=== PATIENT | female | born 1995 | race Caucasian/White ===

== ENCOUNTER 2016-10-24 10:06 | Emergency (ER) | payer OTHER, MEDICAID ==
[~2016-10-24] VITALS: Ht 157.5 cm; Wt 82.0 kg
[~2016-10-24 10:06] MED LIST: IBUP-232 PO; MACR100C2 PO; NORE0.3514 PO; ZOFR4TAB3 SL
[2016-10-24 10:08] VITALS: BP 134/76; PULSE 96; RESP 18; TEMP 98.4; O2SAT 99
[2016-10-24 10:22] VITALS: BP 132/71; PULSE 86; RESP 16; O2SAT 97
--- NOTE | 2016-10-24 10:39 | PD ---
HPI Chief Complaint: Iuss Acoustic Analyst Problem/Complaint Time Seen by Provider: 10:28 Travel History International Travel<30 days: No Contact w/Intl Traveler<30days: No Traveled to known affect area: No History of Present Illness HPI 21-year-old female here for evaluation of vaginal bleeding. The patient reports passing large blood clots to her vagina for the last 2 days. She states that ever since she had a miscarriage about one year ago she has had intermittent vaginal bleeding. She does not believe she has had a normal period since his miscarriage. States last time she had bleeding was about 2-3 months ago. Bleeding is associated with sharp/cramping lower abdominal/pelvic pain. Currently the patient is pain-free. No history of abdominal surgeries. No urinary symptoms. She is sexually active with one partner and believes that she is in a monogamous relationship for the last 2 years. PFSH Past Medical History Hx Anticoagulant Therapy: No Anxiety: Yes Cardiovascular Problems: No Chemotherapy: No Cerebrovascular Accident: No Diabetes: No Diminished Hearing: No Gastrointestinal Disorders: Yes Psychiatric: Yes Respiratory: No Immunizations Current: Yes Ulcer: Yes (per patient report) Influenza Vaccination: No ?: Not LMP: AUGUST 2016 : 2 Para: 1 Miscarriage: 1 Past Surgical History Section: Yes Gynecologic Surgery: Yes () Social History Alcohol Use: Yes (occas) Tobacco Use: No Substance Use: Yes (occas marijuana) Allergies-Medications (Allergen,Severity, Reaction): Coded Allergies: No Known Allergies (Verified , 10/24/16) Reported Meds & Prescriptions Reported Meds & Active Scripts Active No Active Prescriptions or Reported Medications Review of Systems Except as stated in HPI: all other systems reviewed are Neg Physical Exam Narrative GENERAL: Well-developed, well-nourished, comfortable, no acute distress. SKIN: Focused skin assessment warm/dry. HEAD: Atraumatic. Normocephalic. EYES: Pupils equal and round. No scleral icterus. No injection or drainage. ENT: Mucous membranes pink and moist. CARDIOVASCULAR: Regular rate and rhythm. RESPIRATORY: No accessory muscle use. Clear to auscultation. Breath sounds equal bilaterally. GASTROINTESTINAL: Abdomen soft, nondistended. Mild suprapubic tenderness without peritoneal signs. Rest of abdomen is soft and nontender. Normal bowel sounds. ENDOCRINOLOGY SPECIALIST: Exam performed in the presence of a female nurse. Normal external genitalia. Normal cervix. No blood in vaginal vault. Scant brownish/non-foul- smelling vaginal discharge. No CMT. No adnexal masses or tenderness. MUSCULOSKELETAL: No obvious deformities. No clubbing. No cyanosis. No edema. NEUROLOGICAL: Awake and alert. No obvious cranial nerve deficits. Motor grossly within normal limits. Normal speech. PSYCHIATRIC: Appropriate mood and affect; insight and judgment normal. Data Data Last Documented VS Vital Signs Date Time Temp Pulse Resp B/P Pulse Ox O2 Delivery O2 Flow Rate FiO2 10/24/16 10:22 86 16 132/71 97 Room Air 10/24/16 10:08 98.4 Orders Beta Hcg (Quant/Titer) (10/24/16 10:35) Complete Blood Count With Diff (10/24/16 10:35) Comprehensive Metabolic Panel (10/24/16 10:35) Gc And Chlamydia Pcr (10/24/16 10:35) Wet Prep Profile (10/24/16 10:35) Urinalysis - C+S If Indicated (10/24/16 10:35) Ed Urine Pregnancytest Poc (10/24/16 10:35) Labs Laboratory Tests Test 10/24/16 10/24/16 10:45 11:10 White Blood Count 7.6 TH/MM3 Red Blood Count 4.31 MIL/MM3 Hemoglobin 13.0 GM/DL Hematocrit 38.2 % Mean Corpuscular Volume 88.5 FL Mean Corpuscular Hemoglobin 30.2 PG Mean Corpuscular Hemoglobin 34.1 % Concent Red Cell Distribution Width 13.2 % Platelet Count 291 TH/MM3 Mean Platelet Volume 7.6 FL Neutrophils (%) (Auto) 53.7 % Lymphocytes (%) (Auto) 36.0 % Monocytes (%) (Auto) 7.1 % Eosinophils (%) (Auto) 2.7 % Basophils (%) (Auto) 0.5 % Neutrophils # (Auto) 4.1 TH/MM3 Lymphocytes # (Auto) 2.7 TH/MM3 Monocytes # (Auto) 0.5 TH/MM3 Eosinophils # (Auto) 0.2 TH/MM3 Basophils # (Auto) 0.0 TH/MM3 CBC Comment DIFF FINAL Differential Comment Urine Color YELLOW Urine Turbidity CLEAR Urine pH 8.0 Urine Specific [place] 1.016 Urine Protein TRACE mg/dL Urine Glucose (UA) NEG mg/dL Urine Ketones NEG mg/dL Urine Occult Blood TRACE Urine Nitrite NEG Urine Bilirubin NEG Urine Urobilinogen LESS THAN 2.0 MG/DL Urine Leukocyte Esterase NEG Urine RBC 2 /hpf Urine WBC 2 /hpf Urine Squamous Epithelial 3 /hpf Cells Urine Bacteria RARE /hpf Urine Granular Casts 1 /lpf Microscopic Urinalysis Comment CULT NOT INDICATED Sodium Level 138 MEQ/L Potassium Level 3.8 MEQ/L Chloride Level 103 MEQ/L Carbon Dioxide Level 25.9 MEQ/L Anion Gap 9 MEQ/L Blood Urea Nitrogen 11 MG/DL Creatinine 1.03 MG/DL Estimat Glomerular Filtration 66 ML/MIN Rate Random Glucose 86 MG/DL Calcium Level 8.7 MG/DL Total Bilirubin 0.2 MG/DL Aspartate Amino Transf 26 U/L (AST/SGOT) Alanine Aminotransferase 40 U/L (ALT/SGPT) Alkaline Phosphatase 127 U/L Total Protein 7.6 GM/DL Albumin 3.8 GM/DL Human Chorionic Gonadotropin, LESS THAN 1 Quant MIU/ML Clue Cells (Wet Prep) NONE SEEN Vaginal Trichomonas (Wet Prep) NONE SEEN Vaginal Yeast (Wet Prep) NONE SEEN MDM Medical Decision Making Medical Screen Exam Complete: Yes Emergency Medical Condition: Yes Medical Record Reviewed: Yes Differential Diagnosis Abnormal urine bleeding, anemia, uterine fibroids, ectopic , spontaneous , ovarian cyst, ovarian torsion unlikely Narrative Course Initial vital signs show heart rate 96, blood pressure 134/76, pulse ox 99% on room air, oral temp of 98.4F. BC is unremarkable. CMP is remarkable for creatinine 1.03, GFR 66, alkaline phosphatase 127, otherwise unremarkable. Beta hCG is negative. UA shows trace occult blood, rare bacteria, not suggestive of UTI. Wet prep: Is negative for yeast, negative for Trichomonas, negative for clue cells. Patient was made aware of all findings. She is resting comfortably. There is mild suprapubic tenderness on exam. No peritoneal signs. I do not believe that there is an acute surgical issue that warrants further imaging at this time. She is stable for discharge home with outpatient follow-up with a primary care physician and a home health nurse this week. She was informed on when to return to the emergency department. She verbalizes understanding and agreement with plan. Diagnosis Primary Impression: Abnormal uterine bleeding Referrals: Swat Team Member 3 days Primary Care Physician 3 days Additional Instructions: Follow-up with a primary care physician this week. Follow-up with your home health nurse as scheduled. Return to the emergency department for worsening symptoms or any other concerns as discussed. Scripts Naproxen (Naprosyn)500 Mg Yms396 Mg PO BID #10 TAB Ref 0 Prov:Lukas Gamble MD 10/24/16 Disposition: 01 DISCHARGE HOME Condition: Stable Lukas Gamble MD October 24, 2016 10:39
[2016-10-24 11:02] LABS: BACTERIA, URINE RARE /hpf; BLOOD, URINE TRACE (NEG); GLUCOSE,URINE NEG (NEG); GRANULAR CAST, URINE 1 /lpf; KETONE, URINE NEG (NEG); NITRITE,URINE NEG (NEG); SQUAMOUS EPITHELIAL CELL URINE 3 /hpf (0-5); URINE COLOR YELLOW (YELLW/STRAW)
[2016-10-24 11:04] LABS: AUTOMATED NEUTROPHIL # 4.1 TH/MM3 (1.8-7.7); BASOPHIL % 0.5 % (0.0-2.0); COMMENT (UR) CULT NOT INDICATED; CULTURE IF INDICATED CULT NOT INDICATED; EOSINOPHIL # 0.2 TH/MM3 (0-0.4); EOSINOPHIL % 2.7 % (0.0-4.0); HEMATOCRIT 38.2 % (35.0-46.0); HEMO FLAGS DIFF FINAL; LYMPHOCYTE # 2.7 TH/MM3 (1.0-4.8); MEAN CELL VOLUME 88.5 FL (80.0-100.0); MEAN CORPUSCULAR HEMOGLOBIN 30.2 PG (27.0-34.0); MEAN CORPUSCULAR HGB CONC 34.1 % (32.0-36.0); MONO % 7.1 % (0.0-8.0); NEUT % 53.7 % (16.0-70.0); PLATELET COUNT 291 TH/MM3 (150-450); RED BLOOD COUNT 4.31 MIL/MM3 (4.00-5.30); RED CELL DISTRIBUTION WIDTH 13.2 % (11.6-17.2); WHITE BLOOD COUNT 7.6 TH/MM3 (4.0-11.0)
[2016-10-24 11:17] LABS: ALT (GPT) 40 U/L (10-53); ANION GAP 9 MEQ/L (5-15); AST (GOT) 26 U/L (15-37); BICARBONATE 25.9 MEQ/L (21.0-32.0); BLOOD UREA NITROGEN 11 MG/DL (7-18); CHLORIDE 103 MEQ/L (98-107); GLOMERULAR FILTRATION RATE 66 ML/MIN (>89); POTASSIUM 3.8 MEQ/L (3.5-5.1); SODIUM (NA) 138 MEQ/L (136-145)
[2016-10-24 11:23] LABS: ALKALINE PHOSPHATASE 127 U/L (45-117); BETA HCG QUANT LESS THAN 1 MIU/ML (0-5); TOTAL BILIRUBIN ADULT 0.2 MG/DL (0.2-1.0)
[2016-10-24] MEDS ORDERED: NAPR500 PO (11:42)
[2016-10-24 11:44] VITALS: BP 126/89
[2016-10-24 14:29] LABS: CHLAMYDIA PCR NOT DETECTED (NOT DETECT); NEISSERIA PCR NOT DETECTED (NOT DETECT)
== END 2016-10-24 11:58 | disposition home or self-care (01) ==
LOC: NEPD 10:06
DX: N93.9 Abnormal uterine and vaginal bleeding, unspecified (principal); R10.2 Pelvic and perineal pain
CPT/HCPCS: 80053; 81001; 84702; 84703; 85025; 87210; 87491; 87591; 99284

== ENCOUNTER 2017-06-07 21:33 | Emergency (ER) | payer MEDICAID, OTHER ==
[~2017-06-07] VITALS: Ht 215.9 cm; Wt 88.1 kg
[~2017-06-07 21:33] MED LIST changes: -IBUP-232 PO; -MACR100C2 PO; +NAPR500 PO; -NORE0.3514 PO; -ZOFR4TAB3 SL
[2017-06-07 21:36] VITALS: BP 139/81; PULSE 74; RESP 18; TEMP 99.1; O2SAT 98
--- NOTE | 2017-06-07 22:24 | PD ---
HPI Chief Complaint: Chest Pain Time Seen by Provider: 21:59 Travel History International Travel<30 days: No Contact w/Intl Traveler<30days: No Traveled to known affect area: No History of Present Illness HPI 21-year-old white female presents emergency Department with complaints of chest pain. She states that she's had 2 episodes over the past week. Her last episode was earlier today. She states that it was in the center of her chest. No radiation. Worse with taking a deep breath. She does make note that she has some cold symptoms earlier this past week. Patient did report some tingling around her face with the episode of chest pain and difficulty breathing. She also smokes marijuana and just quit control last month. She denies any recent travel. No calf or leg swelling. Patient denies any medical problems. No diabetes or hypertension. No family history of heart disease. PFSH Past Medical History Hx Anticoagulant Therapy: No Anxiety: Yes Cardiovascular Problems: No Chemotherapy: No Cerebrovascular Accident: No Diabetes: No Diminished Hearing: No Gastrointestinal Disorders: Yes Psychiatric: Yes Respiratory: No Immunizations Current: Yes Ulcer: Yes (per patient report) Tetanus Vaccination: > 5 Years Influenza Vaccination: No ?: Not LMP: IRREGULAR : 2 Para: 1 Miscarriage: 1 Past Surgical History Section: Yes Gynecologic Surgery: Yes () Social History Alcohol Use: Yes (occas) Tobacco Use: No Substance Use: Yes (occas marijuana) Allergies-Medications (Allergen,Severity, Reaction): Coded Allergies: No Known Allergies (Verified Adverse Reaction, Unknown, 06/07/17) Reported Meds & Prescriptions Reported Meds & Active Scripts Active Review of Systems Except as stated in HPI: all other systems reviewed are Neg Physical Exam Narrative GENERAL: Well-developed, well-nourished in no apparent distress. Nontoxic appearing. HEAD: Normocephalic, atraumatic. EYES: Pupils equal round and reactive. Extraocular motions intact. No scleral icterus. No injection or drainage. ENT: Nose clear. Throat without erythema, tonsillar hypertrophy or exudate. Uvula midline. Airway patent. NECK: Trachea midline. Supple, nontender, moves head freely. No central bony tenderness or spasm. CARDIOVASCULAR: Regular rate and rhythm without murmurs, gallops, or rubs. RESPIRATORY: Clear to auscultation. Breath sounds equal bilaterally. No wheezes , rales, or rhonchi. GASTROINTESTINAL: Abdomen soft, non-tender, nondistended. No hepato-splenomegaly , or palpable masses. No guarding. EXTREMITIES: No clubbing, cyanosis, or edema. No joint tenderness. No calf tenderness or swelling. No Homans sign. BACK: Nontender without deformity. No flank tenderness. NEUROLOGICAL: Awake, alert and oriented x 3 .Cranial nerves grossly intact. Motor and sensory grossly within normal limits. Normal speech. Data Data Last Documented VS Vital Signs Date Time Temp Pulse Resp B/P (MAP) Pulse Ox O2 Delivery O2 Flow Rate FiO2 06/07/17 21:36 99.1 74 18 139/81 (100) 98 Room Air Orders Orders Electrocardiogram (06/07/17 22:04) D-Dimer (06/07/17 22:04) Chest, Pa & Lat (06/07/17 22:04) Ed Urine Pregnancytest Poc (06/07/17 22:04) Ondansetron Odt (Zofran Odt) (06/07/17 23:15) Ed Discharge Order (06/07/17 23:36) Labs Laboratory Tests Test 06/07/17 22:10 D-Dimer Quantitative (PE/DVT) 0.37 MG/L FEU [facility] Medical Decision Making Medical Screen Exam Complete: Yes Emergency Medical Condition: Yes Medical Record Reviewed: Yes Interpretation(s) Laboratory Tests Test 06/07/17 22:10 D-Dimer Quantitative (PE/DVT) 0.37 MG/L FEU Last 24 hours Impressions Chest X-Ray 06/07/17 8610 Signed Impressions: Service Date/Time: Wednesday, June 07, 2017 22:16 - CONCLUSION: No acute cardiopulmonary disease. Jolanta Thapa MD EKG shows sinus tachycardia with a ventricular rate of 111, incomplete right bundle-branch block. No ST elevation or depression, and no arrhythmias. No significant T-wave inversions. Normal QT. Normal axis. Differential Diagnosis MDM: High Differential diagnoses: Coronary artery disease, STEMI, angina, pneumothorax, pericarditis, anxiety, pleurisy, pulmonary embolus, pneumonia, electrolyte abnormality Narrative Course Patient is resting comfortably examination room. She is not having any pain. EKG shows no acute ST-T wave changes. Patient's d-dimer is negative. Chest x-ray is negative. This is noncardiac chest wall pain Diagnosis Primary Impression: Chest wall pain Patient Instructions: General Instructions Additional Instructions: Rest. 3 Advil every 6 hours. Follow-up with a primary care doctor in 1 week. Return to the ER for any problems. Med/Other Pt SpecificInfo: Prescription(s) given Disposition: 01 DISCHARGE HOME Condition: Stable Kash Morales Jun 07, 2017 22:24
--- NOTE | 2017-06-07 22:28 | RADRPT ---
EXAM DATE/TIME: 06/07/2017 22:16 [facility] COMPARISON: No previous studies available for comparison. INDICATIONS : Chest pain for one day. MEDICAL HISTORY : None. SURGICAL HISTORY : None. ENCOUNTER: Initial ACUITY: 1 day PAIN SCORE: 10/10 LOCATION: Bilateral chest FINDINGS: The lungs are clear without infiltrate, nodule, or mass. There is no appreciable pleural effusion fo r technique. Heart and mediastinum are unremarkable. CONCLUSION: No acute cardiopulmonary disease. Jolanta Thapa MD on June 07, 2017 at 22:25 Board Certified Radiologist. This report was verified electronically.
[2017-06-07] MEDS ORDERED: ONDANSETRON ODT 4 MG TAB PO ONE (23:15)
[2017-06-07 23:52] VITALS: BP 110/56
--- NOTE | 2017-06-08 13:22 | EKG ---
Date Performed: 06/07/2017 Time Performed: 22:04:25 PTAGE: 21 years EKG: SINUS TACHYCARDIA INCOMPLETE RIGHT BUNDLE BRANCH BLOCK ABNORMAL RHYTHM ECG PREVIOUS TRACING : 05/10/2014 02.30 Compared to prior tracing no significant change DOCTOR: Silverio Mcclain Interpretating Date/Time 06/08/2017 13:20:20
== END 2017-06-08 00:13 | disposition home or self-care (01) ==
LOC: NEPD 21:33
DX: R07.89 Other chest pain (principal); F12.90 Cannabis use, unspecified, uncomplicated
CPT/HCPCS: 71020; 84703; 85379; 93005

== ENCOUNTER 2017-09-24 15:05 | Emergency (ER) | payer MEDICAID ==
[~2017-09-24] VITALS: Ht 157.5 cm; Wt 90.0 kg
[2017-09-24 15:08] VITALS: BP 132/86; PULSE 88; RESP 17; TEMP 98.1; O2SAT 99
--- NOTE | 2017-09-24 15:22 | PD ---
HPI Chief Complaint: Oral / Dental Pain or Problem Time Seen by Provider: 15:11 Travel History International Travel<30 days: No Contact w/Intl Traveler<30days: No Traveled to known affect area: No History of Present Illness HPI 22-year-old female presents emergency department with a broken tooth on the right upper second molar, currently awaiting dental appointment on October 09 , with increased sensitivity to hot and cold as well as swelling and pain. Patient states her dentist sent her here to get antibiotics. She denies fever, chills, or difficulty swallowing. Pain is 8 out of 10. It is worse with hot and cold. She has no known drug allergies. PFSH Past Medical History Hx Anticoagulant Therapy: No Anxiety: Yes Cardiovascular Problems: No Chemotherapy: No Cerebrovascular Accident: No Diabetes: No Diminished Hearing: No Gastrointestinal Disorders: Yes Psychiatric: Yes Respiratory: No Immunizations Current: Yes Ulcer: Yes (per patient report) : 2 Para: 1 Miscarriage: 1 Past Surgical History Section: Yes Gynecologic Surgery: Yes () Social History Alcohol Use: Yes (occas) Tobacco Use: No Substance Use: Yes (occas marijuana) Allergies-Medications (Allergen,Severity, Reaction): Coded Allergies: No Known Allergies (Verified Adverse Reaction, Unknown, 09/24/17) Reported Meds & Prescriptions Reported Meds & Active Scripts Active Review of Systems Except as stated in HPI: all other systems reviewed are Neg General / Constitutional: No: Fever, Chills Eyes: No: Visual changes HENT: Positive: Dental Difficulties, No: Headaches, Vertigo, Lightheadedness, Sore Throat, Rhinitis, Rhinorrhea, Congestion, Nosebleed, Neck Stiffness, Neck Pain, Gingival Bleeding, Earache Cardiovascular: No: Chest Pain or Discomfort Respiratory: No: Shortness of Breath Gastrointestinal: No: Abdominal Pain Genitourinary: No: Dysuria Musculoskeletal: No: Pain Skin: No Rash Neurologic: No: Weakness Psychiatric: No: Depression Endocrine: No: Polydipsia Hematologic/Lymphatic: No: Easy Bruising Physical Exam Narrative GENERAL: Patient appears in mild to moderate distress per SKIN: Warm and dry. Normal color. Normal turgor. HEAD: Atraumatic. Normocephalic. EYES: Pupils equal and round. No scleral icterus. No injection or drainage. ENT: No nasal bleeding or discharge. Mucous membranes pink and moist. Pharynx is clear. Airways patent. Patient has a broken second upper molar on the right. No appreciable abscess is noted NECK: Trachea midline. Supple and nontender. No significant lymphadenopathy. CARDIOVASCULAR: Regular rate and rhythm. RESPIRATORY: No accessory muscle use. Clear to auscultation. Breath sounds equal bilaterally. GASTROINTESTINAL: Abdomen soft, non-tender, nondistended. Hepatic and splenic margins not palpable. MUSCULOSKELETAL: Extremities without clubbing, cyanosis, or edema. No obvious deformities. NEUROLOGICAL: Awake and alert. No obvious cranial nerve deficits. Motor grossly within normal limits. Five out of 5 muscle strength in the arms and legs. Normal speech. PSYCHIATRIC: Appropriate mood and affect; insight and judgment normal. Data Data Last Documented VS Vital Signs Date Time Temp Pulse Resp B/P (MAP) Pulse Ox O2 Delivery O2 Flow Rate FiO2 09/24/17 15:08 98.1 88 17 132/86 (101) 99 MDM Medical Decision Making Medical Screen Exam Complete: Yes Emergency Medical Condition: Yes Differential Diagnosis Cracked tooth. Dental pain. Dental abscess. Narrative Course Patient treated with Pen-Vee K 500 mg 4 times daily for 10 days. Patient given ibuprofen 600 mg 4 times daily #40. Patient given Magic mouthwash every 2 hours as needed dental pain 120 mL's with 1 refill. Patient to follow-up with dentist as scheduled. Diagnosis Primary Impression: Dental abscess Referrals: Dentist Patient Instructions: Dental Abscess (ED), General Instructions Additional Instructions: Patient treated with Pen-Vee K 500 mg 4 times daily for 10 days. Patient given ibuprofen 600 mg 4 times daily #40. Patient given Magic mouthwash every 2 hours as needed dental pain 120 mL's with 1 refill. Patient to follow-up with dentist as scheduled. Med/Other Pt SpecificInfo: Prescription(s) given Disposition: 01 DISCHARGE HOME Condition: Stable Tor Mcdonald Sep 24, 2017 15:22
[2017-09-24] MEDS ORDERED: IBUP-232 PO (15:23)
[2017-09-24] MEDS ORDERED: MAGICADU2 SWISH-SPIT (15:23)
[2017-09-24] MEDS ORDERED: PENI500T PO (15:23)
== END 2017-09-24 16:21 | disposition home or self-care (01) ==
LOC: NEPK 15:05
DX: K04.7 Periapical abscess without sinus (principal)
CPT/HCPCS: 99283

== ENCOUNTER 2017-11-15 17:44 | Emergency (ER) | payer MEDICAID ==
[~2017-11-15] VITALS: Ht 160 cm; Wt 87.0 kg
[~2017-11-15 17:44] MED LIST changes: +IBUP-232 PO; +MAGICADU2 SWISH-SPIT; -NAPR500 PO; +PENI500T PO
[2017-11-15 17:48] VITALS: BP 142/85; PULSE 103; RESP 19; TEMP 98.6; O2SAT 98
== END 2017-11-15 18:50 | disposition left against medical advice (07) ==
LOC: NED 17:44
DX: Z53.21 Procedure and treatment not carried out due to patient leaving prior to being seen by health care provider (principal); M79.601 Pain in right arm
CPT/HCPCS: 99281

== ENCOUNTER 2018-03-17 00:53 | Observation (INO) ==
[2018-03-17 01:08] VITALS: TEMP 97.2
[2018-03-17] MEDS ORDERED: Sodium Chlor 0.9% Inj 500 ML IV.SIG ONE (03:35)
[2018-03-17] MEDS ORDERED: Pantoprazole Inj 40 MG Vial IV.PUSH ONE (03:35)
--- NOTE | 2018-03-17 04:00 | ED ---
HPI General Chief Complaint: Chest Pain Stated Complaint: Chest pain/SOB Time Seen by Provider: 03/17/18 03:03 Source: patient Mode of arrival: ambulatory Limitations: no limitations History of Present Illness HPI narrative: The patient is a 22 year old female who presents to the [facility] emergency department with a history of chest pain that she reports is been coming and going for the last few days. She reports that it has been more persistent this evening and more severe. She reports that she has had sharp chest pains in the past that have been attributed to anxiety after workups were done. She reports that she has not had a stress test in the past. She reports that this chest pain is different. She reports that it is in the center of her chest in the upper aspect and is a pressure sensation. She reports that time she also has a burning sensation although she denies any acid reflux otherwise. She denies any prior history of diabetes, hypertension, or hyperlipidemia. She does however have a family history of heart disease specifically in her dad who had an PR at 49 years of age and her grandmother. She denies any prior history of DVT or PE. She denies having any lower extremity edema, calf pain, or erythema. She denies any family history of blood clots. Her primary care physician is Dr. Monte. The patient's last menstrual cycle was 2 weeks ago. She reports that she has had irregular menstrual cycles for the last 2 years with cycles that will last for up to a month at a time. She is in the process of being referred to an nipple maker for her cycles. The patient reports that with the chest pain this evening she has had shortness of breath. She has had nausea without vomiting. She also reports having some sweating associated with this. On review of systems otherwise, the patient denies having any known recent fevers, cough, congestion, neck pain, chest pain, shortness of breath, abdominal pain, vomiting, diarrhea, urinary symptoms, or neurologic symptoms. Related Data Home Medications Medication Instructions Recorded Confirmed No Known Home Medications 02/19/18 03/17/18 Allergies Allergy/AdvReac Type Severity Reaction Status Date / Time No Known Allergies Allergy Verified 12/28/17 02:23 Review of Systems ROS: all other systems reviewed are negative [facility] Medical History Medical History Dysfunctional uterine bleeding (Acute) Anxiety (Acute) delivery delivered (Acute) Social History Social History Substance History: Past History Second Hand Smoke Exposure: No Smoking Status: Never smoker How Often Do You Have a Drink Containing Alcohol: Monthly or less Recent Travel in [facility] within the Last 8 Weeks: No Recent Out of Country Travel within the Last 8 Weeks: No Substance Abuse Detail Marijuana: Route Used Substance Abuse: Inhalation Immunization History Tetanus Immunization: >5 Years Exam Const General: cooperative, no acute distress and well developed Nutritional Appearance: well nourished Orientation: alert, awake and oriented x3 HENMT Head: normocephalic and atraumatic Nose: no nasal discharge and no epistaxis Mouth: moist mucous membranes Throat: posterior oropharynx normal and uvula midline Eyes Sclera: normal sclerae Pupils: PERRL EOM: EOM intact bilaterally Neck Neck: no meningeal signs, trachea midline and no JVD Chest Chest: normal inspection of the chest and no tenderness Resp Effort & Inspection: no use of accessory muscles Auscultation: clear to auscultation bilaterally Cardio Rate: regular rate Rhythm: regular rhythm Heart Sounds: no murmurs GI Inspection: non-distended Palpation: soft, no hepatosplenomegaly, no guarding, not rigid and nontender Auscultation: normal bowel sounds Back/Spine/Pelvis Back: no CVA tenderness Skin General: dry skin (warm) Neuro General: alert, awake, oriented x3 and other (Grossly nonfocal.) Speech: speech normal Motor: no movement abnormalities noted Extrem General: normal to inspection (2+ pulses in all 4 extremities.), no calf tenderness, no clubbing, no cyanosis and no edema Psych Mood: congruent mood Affect: normal affect Judgment: judgment good Course Initial Documented Vital Signs Temperature 97.2 F L 03/17/18 01:05 Pulse Rate 98 H 03/17/18 01:05 Respiratory Rate 18 03/17/18 01:05 Blood Pressure 130/73 03/17/18 01:05 Pulse Oximetry 100 03/17/18 01:05 Last Documented Vital Signs Temperature 97.2 F L 03/17/18 01:05 Pulse Rate 80 03/17/18 08:10 Respiratory Rate 16 03/17/18 08:10 Blood Pressure 100/54 L 03/17/18 08:10 Pulse Oximetry 99 03/17/18 08:10 Medical Decision Making MDM Narrative Medical decision making narrative: During the course of the patient's emergency department visit, the patient's history, examination, and differential diagnosis were reviewed with the patient. The patient was placed on a student ministries director with oximetry and frequent blood pressure monitoring. The patient had IV access obtained and blood work sent for analysis. A diagnostic evaluation was started regarding the patient's chest pain. The patient reports that she did take 4 adult aspirin throughout the day over the last 24 hours. The patient was initially provided normal saline at 500 mL bolus x1, Protonix 40 mg IV x1, nitroglycerin sublingual x1, Zofran 4 mg IV for nausea. The patient's diagnostic evaluation is remarkable for normal CBC, PT PTT within normal limits, d-dimer less than 0.00.50 decreasing likelihood of pulmonary embolism in this patient with no other significant risk factors. Chemistry is remarkable for chloride of 108, GFR of 82, calcium 8.4, total bilirubin 0.1, initial set of cardiac enzymes are within normal limits, lipase within normal limits. The patient had a chest x-ray done that showed no acute abnormality. The patient was agreeable with the plan to proceed with admission to the chest pain center for rule out real cardiac enzyme protocol followed by consideration of stress testing given her family history of cardiac disease. The patient's results were discussed with the patient, including the plan of care. I explained that further testing and/ or monitoring is indicated based on the patient's history, examination, and/ or laboratory findings. Therefore, I recommended admission for additional evaluation. The patient expressed understanding and was agreeable with this plan. The patient was admitted to the hospital in stable condition and sent to a bed under the care of the [facility]. Medical Screen Exam Complete: Yes Emergency Medical Condition: Yes Differential Diagnosis Differential Diagnosis: Acute coronary syndrome, versus pulmonary embolism, versus acid reflux, versus anxiety disorder Medical Records Medical records reviewed: Yes I reviewed the patient's medical records. Lab Data Lab results reviewed: Yes I reviewed the patient's lab results. Result diagrams: 03/17/18 03:55 03/17/18 03:55 POC Results POC Urine Results Negative Lab Results 03/17/18 03/17/18 03/17/18 Range/Units 03:55 03:55 03:55 WBC 9.6 (4.0-11.0) th/mm3 RBC 4.38 (4.00-5.30) mil/mm3 Hgb 12.9 (11.6-15.3) gm/dL Hct 38.0 (35.0-46.0) % MCV 86.7 (80.0-100.0) fL MCH 29.4 (27.0-34.0) pg MCHC 33.9 (32.0-36.0) % RDW 12.9 (11.6-17.2) % Plt Count 355 (150-450) th/mm3 MPV 7.7 (7.0-11.0) fL Neut % (Auto) 56.4 (16.0-70.0) % Lymph % (Auto) 34.1 (9.0-44.0) % Warrick % (Auto) 6.6 (0.0-8.0) % Eos % (Auto) 2.5 (0.0-4.0) % Baso % (Auto) 0.4 (0.0-2.0) % Neut # (Auto) 5.4 (1.8-7.7) th/mm3 Lymph # (Auto) 3.3 (1.0-4.8) th/mm3 Warrick # (Auto) 0.6 (0.0-0.9) th/mm3 Eos # (Auto) 0.2 (0.0-0.4) th/mm3 Baso # (Auto) 0.0 (0.0-0.2) th/mm3 WBC Differential . Differential Comment Auto diff final PT (9.8-11.6) sec INR Ratio APTT (24.3-30.1) sec D-Dimer Quant (PE/DVT) (0.00-0.50) mg/L FEU Sodium 141 (136-145) meq/L Potassium 4.0 (3.5-5.1) meq/L Chloride 108 H (98-107) meq/L Carbon Dioxide 24.7 (21.0-32.0) meq/L Anion Gap 8 (5-15) meq/L BUN 13 (7-18) mg/dL Creatinine 0.85 (0.50-1.00) mg/dL Estimated GFR 82 L (>89) mL/min Random Glucose 83 (74-106) mg/dL Calcium 8.4 L (8.5-10.1) mg/dL Magnesium 2.1 (1.5-2.5) mg/dL Total Bilirubin 0.1 L (0.2-1.0) mg/dL AST 16 (15-37) U/L ALT 19 (10-53) U/L Alkaline Phosphatase 107 (45-117) U/L Total Creatine Kinase 103 (26-192) U/L CK-MB (CK-2) Less than 1.0 (0.5-3.6) ng/mL Troponin I Less than 0.02 L (0.02-0.05) ng/mL B-Natriuretic Peptide 5 (0-100) pg/mL Total Protein 8.0 (6.4-8.2) g/dL Albumin 3.9 (3.4-5.0) g/dL Lipase 92 (73-393) U/L 03/17/18 03/17/18 Range/Units 03:55 06:40 WBC (4.0-11.0) th/mm3 RBC (4.00-5.30) mil/mm3 Hgb (11.6-15.3) gm/dL Hct (35.0-46.0) % MCV (80.0-100.0) fL MCH (27.0-34.0) pg MCHC (32.0-36.0) % RDW (11.6-17.2) % Plt Count (150-450) th/mm3 MPV (7.0-11.0) fL Neut % (Auto) (16.0-70.0) % Lymph % (Auto) (9.0-44.0) % Warrick % (Auto) (0.0-8.0) % Eos % (Auto) (0.0-4.0) % Baso % (Auto) (0.0-2.0) % Neut # (Auto) (1.8-7.7) th/mm3 Lymph # (Auto) (1.0-4.8) th/mm3 Warrick # (Auto) (0.0-0.9) th/mm3 Eos # (Auto) (0.0-0.4) th/mm3 Baso # (Auto) (0.0-0.2) th/mm3 WBC Differential Differential Comment PT 10.5 (9.8-11.6) sec INR 1.0 Ratio APTT 29.6 (24.3-30.1) sec D-Dimer Quant (PE/DVT) 0.21 (0.00-0.50) mg/L FEU Sodium (136-145) meq/L Potassium (3.5-5.1) meq/L Chloride (98-107) meq/L Carbon Dioxide (21.0-32.0) meq/L Anion Gap (5-15) meq/L BUN (7-18) mg/dL Creatinine (0.50-1.00) mg/dL Estimated GFR (>89) mL/min Random Glucose (74-106) mg/dL Calcium (8.5-10.1) mg/dL Magnesium (1.5-2.5) mg/dL Total Bilirubin (0.2-1.0) mg/dL AST (15-37) U/L ALT (10-53) U/L Alkaline Phosphatase (45-117) U/L Total Creatine Kinase 87 (26-192) U/L CK-MB (CK-2) (0.5-3.6) ng/mL Troponin I Less than 0.02 L (0.02-0.05) ng/mL B-Natriuretic Peptide (0-100) pg/mL Total Protein (6.4-8.2) g/dL Albumin (3.4-5.0) g/dL Lipase (73-393) U/L Imaging Data Radiologist's impression: Chest X-Ray 03/17/18 03:36 CONCLUSION: 1. No acute abnormality or significant interval change. ECG Data Attestation: I personally reviewed and interpreted this ECG as follows: Interpretation: The patient had an EKG done on arrival. The patient's EKG reveals a sinus rhythm heart rate of 88, QRS duration is 97 ms, QTC [address] segment elevation is noted. T waves are inverted in V1. An incomplete right bundle branch block is noted. Discharge Plan Discharge Disposition Patient Disposition: 30 Still Patient Discharge Details Diagnosis: Chest pain, rule out acute myocardial infarction Physicians Team ED Provider: Celina Coe Primary Care Provider: Farheen Monte Attending Provider: Randy Millan Status ED Status: Admitted Observation Patient
[2018-03-17 04:56] LABS: Baso % (Auto) 0.4 % (0.0-2.0); Eos # (Auto) 0.2 th/mm3 (0.0-0.4); Eos % (Auto) 2.5 % (0.0-4.0); Hemoglobin 12.9 gm/dL (11.6-15.3); Lymph # (Auto) 3.3 th/mm3 (1.0-4.8); Lymph % (Auto) 34.1 % (9.0-44.0); Mean Corpuscular HGB Conc 33.9 % (32.0-36.0); Mean Corpuscular Hemoglobin 29.4 pg (27.0-34.0); Mean Corpuscular Volume 86.7 fL (80.0-100.0); Mean Platelet Volume 7.7 fL (7.0-11.0); Mono # (Auto) 0.6 th/mm3 (0.0-0.9); Mono % (Auto) 6.6 % (0.0-8.0); Neut # (Auto) 5.4 th/mm3 (1.8-7.7); Neut % (Auto) 56.4 % (16.0-70.0); Platelet Count 355 th/mm3 (150-450); Red Blood Count 4.38 mil/mm3 (4.00-5.30); Red Cell Distribution Width 12.9 % (11.6-17.2); White Blood Count 9.6 th/mm3 (4.0-11.0)
[2018-03-17 05:09] LABS: Alanine Aminotransferase 19 U/L (10-53); Albumin 3.9 g/dL (3.4-5.0); Anion Gap 8 meq/L (5-15); Aspartate Aminotransferase 16 U/L (15-37); Blood Urea Nitrogen 13 mg/dL (7-18); Calcium 8.4 mg/dL (8.5-10.1); Carbon Dioxide 24.7 meq/L (21.0-32.0); Chloride 108 meq/L (98-107); Glomerular Filtration Rate 82 mL/min (>89); Glucose,Random 83 mg/dL (74-106); Lipase 92 U/L (73-393); Magnesium 2.1 mg/dL (1.5-2.5); Sodium 141 meq/L (136-145)
[2018-03-17 05:12] LABS: Alkaline Phosphatase 107 U/L (45-117); Creatine Kinase 103 U/L (26-192)
[2018-03-17 05:13] LABS: Activated Partial Thrombo Time 29.6 sec (24.3-30.1); Prothrombin Time 10.5 sec (9.8-11.6)
[2018-03-17 05:18] LABS: D-Dimer 0.21 mg/L FEU (0.00-0.50)
[2018-03-17] MEDS ORDERED: Acetaminophen 500 MG Tablet PO PRN (05:34)
[2018-03-17] MEDS ORDERED: Sod Chloride 0.9% Inj 1,000 ML IV.CONT SCH (05:45)
--- NOTE | 2018-03-17 07:46 | XR ---
EXAM DATE: 03/17/2018 3:36 AM EDT AGE/SEX: 22 years / Female INDICATIONS: Short of breath. CLINICAL DATA: This is the patient's initial encounter. Patient reports that signs and symptoms have been present for 1 day and indicates a pain score of 0/10. MEDICAL/SURGICAL HISTORY: None. None. COMPARISON: [facility], CHEST 1V SINGLE AP, 02/19/2018. . FINDINGS: No new focal pleural or parenchymal opacities. The cardiomediastinal contours are unremarkable. Osse ous structures are intact. CONCLUSION: 1. No acute abnormality or significant interval change. Electronically signed by: Heath Roblero MD 03/17/2018 7:44 AM EDT
[2018-03-17 08:11] LABS: Creatine Kinase 87 U/L (26-192)
[2018-03-17] MEDS ORDERED: Famotidine 20 MG Tablet PO SCH (09:00)
--- NOTE | 2018-03-17 09:02 | P.HPCA ---
History of Present Illness Primary Care Physician: Farheen Monte MD Chief Complaint: Chest pain History of Present Illness: 22-year-old female with no significant medical history presents the emergency room for further evaluation of chest pain. Onset 3 days ago. Location substernal. Characterized as sharp. Duration constant. No radiation. No associated symptoms of nausea, vomiting, diaphoresis, or dyspnea. Deep breathing, twisting, moving arms, and certain movements make pain worse. No recent fever, chills, illness, hematuria, or injury. No precipitating or relieving factors. Denies similar pain in the past. Questions if discomfort could be related to anxiety as PCP informed her discomfort likely related to anxiety. Following with PCP for irregular, heavy menses, and intermittent chest pain as described above. Last menses 2 weeks ago. Reports recent thyroid studies unremarkable. Referral from PCP to pelts skinner at [facility] is scheduled for 2 weeks for further testing. Past cardiac testing None Social history No known diabetes, hypertension, or hyperlipidemia. Lifelong non-smoker. Denies any alcohol or recreational drug use. . 4-year-old son. Works for [employer]. Assists daily caring for her younger sibling who is autistic. Endorses an active lifestyle, denies daily purposeful exercise. Family history Noncontributory for early onset cardiovascular disease. - Diagnosis (1) Atypical chest pain (2) Obesity (BMI 30.0-34.9) (3) Anxiety Review of Systems All other systems reviewed negative except as stated in HPI PMFSH - History History Provided By: Patient - Medical History Medical History: Medical History (Last Reviewed 03/17/18 @ 09:18 by MARTHA Paiz) Dysfunctional uterine bleeding Anxiety delivery delivered - Surgical History Surgical History: Surgical History (Last Updated 03/17/18 @ 09:19 by MARTHA Paiz) Previous section - Social History I have reviewed the patient's Social History: Yes - Tobacco History Second Hand Smoke Exposure: No Tobacco Use In Past 30 Days: No Smoking Status: Never smoker - Alcohol History How Often Do You Have a Drink Containing Alcohol: Monthly or less - Substance Use History Substance History: Past History - Substance Use Type Marijuana Route Used: Inhalation - Travel History History of Recent Travel: No Recent Travel in the [place] Within the Last 8 Weeks: No Recent Travel Out of the Country Within the Last 8 Weeks: No - Immunization History Tetanus Immunization: >5 Years Medications and Allergies Active Medications: Active Medications Acetaminophen (Tylenol) 500 mg PO Q4H PRN PRN Reason: HEADACHE Famotidine (Pepcid) 20 mg PO BID ARIANNA Sodium Chloride (Ns Inj) 1,000 mls @ 100 mls/hr IV.CONT .Q10H ARIANNA Last Admin: 03/17/18 08:25 Dose: 100 mls/hr Sodium Chloride (Ns Flush) 2 ml IV.FLUSH UNSCH PRN PRN Reason: FLUSH AFTER USING IV ACCESS Sodium Chloride (Ns Flush) 2 ml IV.FLUSH BID ARIANNA Sodium Chloride (Ns Flush) 2 ml IV.FLUSH PRN PRN PRN Reason: FLUSH AFTER USING IV ACCESS Allergies Allergy/AdvReac Type Severity Reaction Status Date / Time No Known Allergies Allergy Verified 12/28/17 02:23 Home Medications Medication Instructions Recorded Confirmed Type No Known Home Medications 02/19/18 03/17/18 History Exam Vital signs: Vital Signs 03/17/18 01:05 03/17/18 03:08 03/17/18 03:45 Temperature 97.2 F L Pulse Rate 98 H 74 Respiratory Rate 18 12 Blood Pressure 130/73 120/57 L Pulse Oximetry 100 97 97 03/17/18 04:00 03/17/18 04:30 03/17/18 08:10 Temperature Pulse Rate 68 72 80 Respiratory Rate 16 17 16 Blood Pressure 115/63 106/58 L 100/54 L Pulse Oximetry 100 100 99 Intake & Output 03/16/18 03/17/18 03/17/18 18:59 06:59 18:59 Intake Total 500 / 500 Balance 500 / 500 Weight 81.647 kg Intake: IV 500 / 500 NS Inj 500 ML @ Wide Open IV. 500 / 500 SIG BOLUS ONE Rx#:[id number] Narrative: GENERAL: Alert WN, WD, NAD, pleasant, obese, female easily awakens from sleep HEAD: NC, AT EYES: Sclera clear, conjunctiva without injection, pupils equal and round ENT: Mucous membranes pink and moist NECK: Supple, no masses, trachea midline CV: RRR, without murmur, rub, gallop, no JVD, S1-S2. Chest wall nontender to palpation. RESP: Clear lungs throughout bilateral, no crackles, wheeze, rhonchi, symmetrical chest rise, nonlabored, able to speak in full sentences ABD: Soft, NT, ND, no masses, positive bowel tones EXT: Pulses +2x4, no dependent edema MS: Normal tone -4 extremities, nontender, no obvious deformities, full range of motion NEURO: CN II through CN XII grossly intact, motor strength 5/5 PSYCH: A+O x3, pleasant affect, appropriate speech, mood, insight and judgment SKIN: Normal turgor, normal texture, no lesions, no rashes, brisk cap refill, even hair distribution Results 03/17/18 03:55 03/17/18 03:55 Cardiac Enzymes 03/17/18 03/17/18 03/17/18 Range/Units 03:55 03:55 06:40 AST 16 (15-37) U/L CK-MB (CK-2) Less than 1.0 (0.5-3.6) ng/mL Troponin I Less than 0.02 L Less than 0.02 L (0.02-0.05) ng/mL B-Natriuretic Peptide 5 (0-100) pg/mL Coagulation 03/17/18 03/17/18 Range/Units 03:55 03:55 PT 10.5 (9.8-11.6) sec APTT 29.6 (24.3-30.1) sec B-Natriuretic Peptide 5 (0-100) pg/mL CBC 03/17/18 Range/Units 03:55 WBC 9.6 (4.0-11.0) th/mm3 RBC 4.38 (4.00-5.30) mil/mm3 Hgb 12.9 (11.6-15.3) gm/dL Hct 38.0 (35.0-46.0) % Plt Count 355 (150-450) th/mm3 Neut # (Auto) 5.4 (1.8-7.7) th/mm3 Lymph # (Auto) 3.3 (1.0-4.8) th/mm3 Rhea # (Auto) 0.6 (0.0-0.9) th/mm3 Eos # (Auto) 0.2 (0.0-0.4) th/mm3 Baso # (Auto) 0.0 (0.0-0.2) th/mm3 Comprehensive Metabolic Panel 03/17/18 Range/Units 03:55 Sodium 141 (136-145) meq/L Potassium 4.0 (3.5-5.1) meq/L Chloride 108 H (98-107) meq/L Carbon Dioxide 24.7 (21.0-32.0) meq/L BUN 13 (7-18) mg/dL Creatinine 0.85 (0.50-1.00) mg/dL Calcium 8.4 L (8.5-10.1) mg/dL AST 16 (15-37) U/L ALT 19 (10-53) U/L Alkaline Phosphatase 107 (45-117) U/L Total Protein 8.0 (6.4-8.2) g/dL Albumin 3.9 (3.4-5.0) g/dL Intake and Output 03/16/18 03/17/18 03/17/18 22:59 06:59 14:59 Intake Total 500 / 500 Balance 500 / 500 Intake: IV 500 / 500 NS Inj 500 ML @ Wide Open IV. 500 / 500 SIG BOLUS ONE Rx#:[id number] Other: Weight 81.647 kg - Imaging and Cardiology Imaging: Impressions Chest X-Ray 03/17/18 03:36 CONCLUSION: 1. No acute abnormality or significant interval change. EKG interpretations - EKG EKG results cardiology: sinus rhythm, normal axis, normal QRS, normal ST/T Caprini VTE Risk Assessment Caprini VTE Risk Assessment: No/Low Risk (score <= 1) Caprini Risk Assessment Model: Point Value = 1 Point Value = 2 Point Value = 3 Point Value = 5 Age 41-60 Minor surgery BMI > 25 kg/m2 Swollen legs Varicose veins or History of unexplained or recurrent spontaneous Oral contraceptives or hormone replacement Sepsis (< 1 month) Serious lung disease, including pneumonia (< 1 month) Abnormal pulmonary function Acute myocardial infarction Congestive heart failure (< 1 month) History of inflammatory bowel disease Medical patient at bed rest Age 61-74 Arthroscopic surgery Major open surgery (> 45 min) Laparoscopic surgery (> 45 min) Malignancy Confined to bed (> 72 hours) Immobilizing plaster cast Central venous access Age >= 75 History of VTE Family history of VTE Factor V Leiden Prothrombin [id number] Lupus anticoagulant Anticardiolipin antibodies Elevated serum homocysteine Heparin-induced thrombocytopenia Other congenital or acquired thrombophilia Stroke (< 1 month) Elective arthroplasty Hip, pelvis, or leg fracture Acute spinal cord injury (< 1 month) Prophylaxis Regimen: Total Risk Factor Score Risk Level Prophylaxis Regimen 0-1 Low Early ambulation 2 Moderate Order ONE of the following: *Sequential Compression Device (SCD) *Heparin 5000 units SQ BID 3-4 Higher Order ONE of the following medications: *Heparin 5000 units SQ TID *Enoxaparin/Lovenox 40 mg SQ daily (WT < 150 kg, CrCl > 30 mL/min) *Enoxaparin/Lovenox 30 mg SQ daily (WT < 150 kg, CrCl > 10-29 mL/min) *Enoxaparin/Lovenox 30 mg SQ BID (WT < 150 kg, CrCl > 30 mL/min) AND/OR *Sequential Compression Device (SCD) 5 or more Highest Order ONE of the following medications: *Heparin 5000 units SQ TID (Preferred with Epidurals) *Enoxaparin/Lovenox 40 mg SQ daily (WT < 150 kg, CrCl > 30 mL/min) *Enoxaparin/Lovenox 30 mg SQ daily (WT < 150 kg, CrCl > 10-29 mL/min) *Enoxaparin/Lovenox 30 mg SQ BID (WT < 150 kg, CrCl > 30 mL/min) AND *Sequential Compression Device (SCD) Assessment and Plan - Assessment (1) Atypical chest pain Code(s): R07.89 - Other chest pain Status: Acute Plan: Admitted chest pain center. Seen and evaluated by Dr. Haylee Toure. 2 sets of EKGs and cardiac enzymes unremarkable. Proceed with exercise cardiac testing this morning. Reassurance provided discomfort highly unlikely to be related to cardiac blockage. After cardiac testing complete plans to discharge home with follow-up with primary care provider. (2) Obesity (BMI 30.0-34.9) Code(s): E66.9 - Obesity, unspecified Status: Chronic Plan: Encouraged increasing daily activity, weight loss, and dietary modifications. Time for questions and answers provided. (3) Anxiety Code(s): F41.9 - Anxiety disorder, unspecified Status: Chronic Plan: Follow-up with primary care provider. Discouraged starting anti-anxiety medication at such a young age. Encouraged lifestyle modifications including, weight loss, increasing daily activity, and finding stress relieving activities. Encouraged keeping scheduled appointment with pelts skinner as previously recommended by primary care provider.
[2018-03-17 11:04] VITALS: BP 112/63; PULSE 71; RESP 17; O2SAT 100
--- NOTE | 2018-03-18 06:51 | TR ---
Date Performed: 03/17/2018 Time Performed: 10:04:49 DOCTOR: Haylee Toure DRUG LIST: CLINICAL HISTORY: CHEST PAIN REASON FOR TEST: REASON FOR ENDING: OBSERVATION: CONCLUSION: Skip protocol completed. Stopped sec to exceeding target heart rate and leg fatigue . Maximum DY=179 Max HR Achieved=89.0% Maximum TX=001/80 Total Exercise Time=9:31. No reprod chest pa in. No ectopy. Normal bp response. No st t segment changes. Good exercise tolerance. Recovery quick a nd unremarkable. COMMENTS: No ischemia on ETT
--- NOTE | 2018-03-18 14:54 | ECG ---
Date Performed: 03/17/2018 Time Performed: 06:46:00 PTAGE: 22 years EKG: Sinus rhythm POSSIBLE RIGHT VENTRICULAR CONDUCTION DELAY BORDERLINE ECG PREVIOUS TRACING : 02/19/2018 01.51 Since previous tracing, no significant change noted DOCTOR: Randy Millan Interpretating Date/Time 03/18/2018 14:53:48
--- NOTE | 2018-03-18 14:55 | ECG ---
Date Performed: 03/17/2018 Time Performed: 01:17:41 PTAGE: 22 years EKG: Sinus rhythm INCOMPLETE RIGHT BUNDLE BRANCH BLOCK BORDERLINE ECG NO PREVIOUS TRACING DOCTOR: Randy Millan Interpretating Date/Time 03/18/2018 14:53:55
== END 2018-03-17 11:28 | disposition home or self-care (01) ==
LOC: NEDA 00:53 → NEPC 00:53 → NEDA 11:27
PROVIDERS: ADMIT Internal Medicine Cardiovascular Disease; ATTEND Internal Medicine Cardiovascular Disease